=== PATIENT | male | born 1975 | race Caucasian/White ===

== ENCOUNTER 2016-12-23 14:19 | Emergency (ER) | payer SELFPAY | END 2016-12-23 16:24 | disposition home or self-care (01) | LOC: FER 14:19 | DX: R10.9 Unspecified abdominal pain (principal); R11.0 Nausea; F17.210 Nicotine dependence, cigarettes, uncomplicated; Z87.442 Personal history of urinary calculi | CPT/HCPCS: 36415; 84484; 93005 ==